=== PATIENT | male | born 1970 | race Caucasian/White ===

== ENCOUNTER → 2016-11-04 | Outpatient (CLI) | payer OTHER, BC ==
[2016-11-04 13:15] LABS: BASO % 0.9 %; COMPLETE YES; EOS % 2.2 %; HEMATOCRIT 45.3 % (42-52); IG% 1.1 %; LYMPH % 23.9 %; LYMPH ABS # 2.55 K/uL (1.2-3.4); MEAN CELL VOLUME 87.8 fL (80-100); MEAN CORPUSCULAR HGB CONC 34.2 g/dl (32-36); MEAN PLATELET VOLUME 10.6 fL (7.4-10.4); MONO % 9.6 %; NEUT % 62.3 %; PLATELET COUNT 238 K/uL (130-400); RED BLOOD COUNT 5.16 M/uL (4.7-6.1); WHITE BLOOD COUNT 10.66 K/uL (4.8-10.8)
[2016-11-04 14:17] LABS: ESTIMATED AVERAGE GLUCOSE 108 mg/dl; HA1C FLAG Normal (Normal)
[2016-11-04 15:01] LABS: ALB/GLOB RATIO 1.4 (0.9-2); ALKALINE PHOSPHATASE 64 U/L (45-117); ALT/SGPT 53 U/L (12-78); AST/SGOT 26 U/L (15-37); BLOOD UREA NITROGEN 13 mg/dl (7-18); BUN/CREATININE RATIO 11.6 (10-20); CALCIUM 9.1 mg/dl (8.5-10.1); CARBON DIOXIDE 27 mmol/L (21-32); CHLORIDE 108 mmol/L (98-107); CHOLESTEROL 189 mg/dl (0-200); CHOLESTEROL/HDL RATIO 4.2; GLUCOSE 87 mg/dl (70-99); HDL CHOLESTEROL 45 mg/dl; LDL CHOLESTEROL CALCULATED 100 mg/dl; POTASSIUM 3.8 mmol/L (3.5-5.1); SODIUM 145 mmol/L (136-145); THYROID STIMULATING HORMONE 0.846 uIu/ml (0.300-4.500); TRIGLYCERIDES 219 mg/dl (0-150); VERY LOW DENSITY LIPOPROT CALC 44 mg/dl
== END | disposition home or self-care (01) ==
LOC: C.LABMFLN 10:43
PROVIDERS: ATTEND Urology
DX: Z79.899 Other long term (current) drug therapy (principal)

== ENCOUNTER → 2016-11-25 | Outpatient (CLI) | payer OTHER, BC | END | disposition home or self-care (01) | LOC: C.LABMFLN 08:59 | PROVIDERS: ATTEND Urology | DX: Z79.899 Other long term (current) drug therapy (principal) ==

== ENCOUNTER → 2016-12-30 | Outpatient (CLI) | payer OTHER, BC ==
[2016-12-30 18:01] LABS: BASO % 0.9 %; COMPLETE YES; EOS % 2.8 %; HEMATOCRIT 45.2 % (42-52); IG% 0.9 %; LYMPH % 23.4 %; LYMPH ABS # 2.53 K/uL (1.2-3.4); MEAN CELL VOLUME 88.6 fL (80-100); MEAN CORPUSCULAR HEMOGLOBIN 30.2 pg (25-34); MEAN CORPUSCULAR HGB CONC 34.1 g/dl (32-36); MEAN PLATELET VOLUME 11.2 fL (7.4-10.4); MONO % 9.3 %; NEUT % 62.7 %; PLATELET COUNT 228 K/uL (130-400)
[2016-12-30 18:17] LABS: ALT/SGPT 33 U/L (12-78); AST/SGOT 17 U/L (15-37); BLOOD UREA NITROGEN 13 mg/dl (7-18); BUN/CREATININE RATIO 12.6 (10-20); CALCIUM 8.8 mg/dl (8.5-10.1); CARBON DIOXIDE 26 mmol/L (21-32); CHLORIDE 108 mmol/L (98-107); CHOLESTEROL 175 mg/dl (0-200); CHOLESTEROL/HDL RATIO 3.8; GLUCOSE 89 mg/dl (70-99); HDL CHOLESTEROL 46 mg/dl; SODIUM 143 mmol/L (136-145)
[2016-12-30 18:29] LABS: ALB/GLOB RATIO 1.3 (0.9-2); ALKALINE PHOSPHATASE 64 U/L (45-117); LDL CHOLESTEROL CALCULATED 86 mg/dl; TRIGLYCERIDES 216 mg/dl (0-150); VERY LOW DENSITY LIPOPROT CALC 43 mg/dl
== END | disposition home or self-care (01) ==
LOC: C.LABMFLN 12:53
PROVIDERS: ATTEND Family Medicine
DX: F32.9 Major depressive disorder, single episode, unspecified (principal); E78.5 Hyperlipidemia, unspecified

== ENCOUNTER → 2017-09-24 | Day surgery (SDC) | payer BC, OTHER ==
[2017-09-17 08:28] VITALS: Ht 177.8 cm; Wt 116.8 kg
[~2017-09-24] VITALS: Ht 177.8 cm; Wt 116.8 kg
[~2017-09-24] MED LIST: ACET-749 PO; ATROPINE SULFATE 0.1 MG/ML 5ML SYR IV PRN; BUPIVACAINE 0.5 % 5 MG/1 ML PF 10ML VIAL ONE; BUPR-79 PO; CEFAZOLIN 2000MG IV PUSH 10 ML IV SCH; EpHEDrine SULFATE INJ 50 MG/ML AMP IV PRN; FENTANYL CITRATE INJ 50 MCG/1 ML 2 ML VIAL IV PRN; FENTANYL CITRATE INJ 50 MCG/1 ML 2 ML VIAL ONE; FEXO1TAB49 PO; LACTATED RINGER'S 1000ML 1,000 ML IV SCH; LIDOCAINE HCL 2% 2 ML VIAL (20MG/ML) ONE; LIDOCAINE HCL 2% LOCAL 20 ML VIAL ONE; LITH600C PO; MIDAZOLAM HCL 1 MG/ML 2ML VIAL ONE; ONDANSETRON INJ 2 MG/ML 2 ML VIAL IV PRN; PRLSR20 PO; PROPOFOL IV EMULSION 10 MG/ML 20 ML VIAL IV ONE; ROSU40TA PO; SERT-234 PO; SODIUM CHLORIDE 0.9% 1000ML 1,000 ML IV SCH
--- NOTE | 2017-09-24 06:56 | History & Physical Bridge - [place] ---
H&P Re-Evaluation Bridge Note: I have examined the patient, reviewed the History & Physical and in the interval since the performance of the History & Physical I have noted the following changes of clinical significance: No changes noted
--- NOTE | 2017-09-24 07:37 | [facility] Post Operative Brief Note ---
Immediate Operative Summary Operative Date Sep 24, 2017. Pre-Operative Diagnosis Right Carpal Tunnel Syndrome Post-Operative Diagnosis same as pre op Procedure(s) Performed Right Carpal Tunnel Release Surgeon Dr Walls Motor Vehicle Emissions Inspector Surgeon(s) SULLY Moon Estimated Blood Loss minimal Findings Right Carpal Tunnel Syndrome Specimens none Anesthesia Local with IV Sedation Complication(s) None Disposition Recovery Room / PACU
--- NOTE | 2017-09-24 07:39 | Discharge Instructions-SurgCtr ---
Discharge Instructions Date of Service Sep 24, 2017. Visit Reason for Visit: Right Carpal Tunnel Syndrome Discharge Discharge Diagnosis / Problem: right carpal tunnel syndrome Discharge Goals Goal(s): Decrease discomfort, Improve function, Therapeutic intervention Activity Recommendations Activity Limitations: per Instructions/Follow-up section Anesthesia . Post Anesthesia Instructions: If you have had General Anesthesia or IV Sedation: * Do not drive today. * Resume driving when surgeon permits. * Do not make important decisions or sign legal documents today. * Call surgeon for: 1. Temperature elevations greater than 101 degrees F. 2. Uncontrollable pain. 3. Excessive bleeding. 4. Persistent nausea and vomiting. 5. Medication intolerance (nausea, vomiting or rash). * For nausea and vomiting use only clear liquids such as: tea, soda, bouillon until nausea subsides, then gradually increase diet as tolerated. * If you have any concerns or questions, call your surgeon's office. If physician is unavailable and it is an emergency, call 911 or go to the nearest emergency room. . Instructions / Follow-Up Instructions / Follow-Up MEDICATIONS: * Resume previous medications unless instructed otherwise by your surgeon. * Always take pain medication on a full stomach or with food to avoid upset stomach. * Do not drink alcohol or drive while taking narcotics. * Ibuprofen or Tylenol may be taken if narcotic not needed. SPECIAL CARE INSTRUCTIONS: __ None __ Keep extremity elevated and iced x 48 hours; apply ice 20-30 minutes 8-10 times/day. May remove at night. __ Sling __24 hrs/day __ Remove at night __ Shoulder Immobilizer __ 24 hrs/day __ Remove at night _x_ Dressing _x_ Maintain until seen in office, may shower with plastic over site __ Remove dressings in 24-48 hours and then may shower __ Cover incisions with band-aids after showering __ Do not remove steri-strips Call physician if chills or temperature rises above 102 degrees or pain unrelieved by prescribed pain medications at . . follow up in 2 weeks Diet Recommendations Home Diet: resume previous diet Procedures Procedures Performed: Right Carpal Tunnel Release Pending Studies Studies pending at discharge: no Medical Emergencies . Who to Call and When: Medical Emergencies: If at any time you feel your situation is an emergency, please call 911 immediately. . Non-Emergent Contact Non-Emergency issues call your: Surgeon . . "Provider Documentation" section prepared by [employer] [facility]. .
--- NOTE | 2017-09-24 07:54 | OPERATIVE REPORT ---
DATE OF OPERATION: 09/24/2017 SURGEON: Alexi Walls MD BUTADIENE COMPRESSOR OPERATOR: SULLY Rawls. PREOPERATIVE DIAGNOSIS: Right carpal tunnel syndrome. POSTOPERATIVE DIAGNOSIS: Same. PROCEDURE PERFORMED: Right carpal tunnel release. COMPLICATIONS: None. ESTIMATED BLOOD LOSS: Minimal. TOURNIQUET TIME: 5 minutes at 250 mmHg. ANESTHESIA: Local with IV sedation. 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 He underwent a left carpal tunnel release several years ago with pretty good result. He has developed progressive numbness in his right hand. He had nerve study which showed carpal tunnel syndrome in the past. He elected to proceed with right carpal tunnel release. OPERATIVE PROCEDURE: The patient taken to the operating room, identified and placed on the operating table in supine position. All contact areas were appropriately padded. IV antibiotics were provided by anesthesia team. A right forearm tourniquet was placed. Some IV sedation was provided. Then, 10 mL of a 50:50 combination of 0.5% Marcaine and 2% lidocaine were injected in and around the proposed incision site. The right hand was then prepped and draped in usual sterile fashion. The right arm was elevated and exsanguinated with Esmarch and tourniquet was placed at 250 mmHg. A 3 cm incision was made in the palm just ulnar to the palmaris longus tendon. Blunt dissection was carried out through the subcutaneous tissues down to the level of the palmar fascia. The palmar fascia was incised longitudinally in line with skin incision. The underlying transverse carpal ligament was identified. It was cleaned of soft tissues. It was transected distally with use of a Cache blade, knife and then bluntly spread. Attention was then drawn proximally. Blunt dissection was carried out above and below the ligament proximally. The ligament was then transected for a minimum distance of 3 cm proximal to the wrist flexion crease. The ligament was bluntly spread and found to be completely released. The wound was then irrigated. The tourniquet was let down for a tourniquet time of 5 minutes. Hemostasis was assured with use of electrocautery. The wound was once again irrigated. The skin was then closed with 5-0 nylon suture in a horizontal mattress fashion. The hand was then cleaned and dried and a sterile dressing of Xeroform, 4 x 4, sterile cast padding and Edy bandage were applied. The patient then transferred to the recovery room in stable condition. The patient tolerated the procedure well with no complications. All needle and sponge counts were correct at the end of the operation. I attest to the content of the Intraoperative Record and any orders documented therein. Any exception s are noted below.
--- NOTE | 2017-09-24 08:11 | Anesthesiology Progress Note ---
Anesthesia Post Op Note Date & Time Sep 24, 2017 at 08:11 Vital Signs Pain Intensity: 0 Vital Signs Past 12 Hours Date Time Temp Pulse Resp B/P (MAP) Pulse Ox O2 Delivery O2 Flow Rate FiO2 09/24/17 07:40 36.4 71 16 142/84 (103) 97 Room Air 09/24/17 06:31 36.7 63 16 150/86 (107) 94 Room Air Notes Mental Status: alert / awake / arousable, participated in evaluation Nausea / Vomiting: adequately controlled Pain: adequately controlled Airway Patency, RR, SpO2: stable & adequate BP & HR: stable & adequate Hydration State: stable & adequate Anesthetic Complications: no major complications apparent
[2017-09-24 08:20] VITALS: BP 118/73; PULSE 63; TEMP 36.5; O2SAT 96
== END | disposition home or self-care (01) ==
LOC: X.SURG 06:13
PROVIDERS: ATTEND Orthopaedic Surgery Sports Medicine
DX: G56.01 Carpal tunnel syndrome, right upper limb (principal); E78.5 Hyperlipidemia, unspecified; F32.9 Major depressive disorder, single episode, unspecified; E66.9 Obesity, unspecified; Z98.890 Other specified postprocedural states; Z79.899 Other long term (current) drug therapy

== ENCOUNTER → 2017-11-10 | Outpatient (CLI) | payer OTHER ==
[~2017-11-10] MED LIST changes: -ATROPINE SULFATE 0.1 MG/ML 5ML SYR IV PRN; -BUPIVACAINE 0.5 % 5 MG/1 ML PF 10ML VIAL ONE; -CEFAZOLIN 2000MG IV PUSH 10 ML IV SCH; -EpHEDrine SULFATE INJ 50 MG/ML AMP IV PRN; -FENTANYL CITRATE INJ 50 MCG/1 ML 2 ML VIAL IV PRN; -FENTANYL CITRATE INJ 50 MCG/1 ML 2 ML VIAL ONE; -LACTATED RINGER'S 1000ML 1,000 ML IV SCH; -LIDOCAINE HCL 2% 2 ML VIAL (20MG/ML) ONE; -LIDOCAINE HCL 2% LOCAL 20 ML VIAL ONE; -MIDAZOLAM HCL 1 MG/ML 2ML VIAL ONE; -ONDANSETRON INJ 2 MG/ML 2 ML VIAL IV PRN; -PROPOFOL IV EMULSION 10 MG/ML 20 ML VIAL IV ONE; -SODIUM CHLORIDE 0.9% 1000ML 1,000 ML IV SCH
[2017-11-10 17:55] LABS: BASO % 1.2 %; BASO ABS # 0.12 K/uL (0-0.2); EOS % 2.6 %; EOS ABS # 0.27 K/uL (0-0.5); HEMATOCRIT 47.2 % (42-52); HEMOGLOBIN 15.8 g/dL (14.0-18.0); IG# 0.09 K/uL (0.00-0.02); LYMPH % 26.2 %; LYMPH ABS # 2.68 K/uL (1.2-3.4); MEAN CELL VOLUME 89.1 fL (80-100); MEAN CORPUSCULAR HEMOGLOBIN 29.8 pg (25-34); MEAN CORPUSCULAR HGB CONC 33.5 g/dl (32-36); MEAN PLATELET VOLUME 10.7 fL (7.4-10.4); MONO % 9.2 %; MONO ABS # 0.94 K/uL (0.11-0.59); NEUT % 59.9 %; NEUT ABS # 6.14 K/uL (1.4-6.5); PLATELET COUNT 236 K/uL (130-400); RED CELL DISTRIBUTION WIDTH SD 45.5 fL (36.4-46.3); WHITE BLOOD COUNT 10.24 K/uL (4.8-10.8)
[2017-11-10 19:06] LABS: ALBUMIN 4.1 gm/dl (3.4-5.0); BLOOD UREA NITROGEN 13 mg/dl (7-18); CALCIUM 9.1 mg/dl (8.5-10.1); CARBON DIOXIDE 27 mmol/L (21-32); CHOLESTEROL 250 mg/dl (0-200); CREATININE 0.94 mg/dl (0.60-1.40); GLUCOSE 78 mg/dl (70-99); POTASSIUM 3.8 mmol/L (3.5-5.1); SODIUM 140 mmol/L (136-145)
[2017-11-10 19:16] LABS: ALKALINE PHOSPHATASE 59 U/L (45-117); ALT/SGPT 50 U/L (12-78); AST/SGOT 23 U/L (15-37); LDL CHOLESTEROL CALCULATED 147 mg/dl
[2017-11-11 06:32] LABS: HEMOGLOBIN A1C 5.3 % (4.5-5.6)
== END | disposition home or self-care (01) ==
LOC: C.LABMFLN 13:11
PROVIDERS: ATTEND Physician Assistant
DX: Z51.81 Encounter for therapeutic drug level monitoring (principal); Z79.899 Other long term (current) drug therapy

== ENCOUNTER → 2017-12-18 | Outpatient (CLI) | payer OTHER | END | disposition home or self-care (01) | LOC: C.LABMFLN 07:57 | PROVIDERS: ATTEND Physician Assistant | DX: R10.32 Left lower quadrant pain (principal); R19.7 Diarrhea, unspecified ==

== ENCOUNTER 2020-06-14 06:39 | Observation (INO) ==
--- NOTE | 2020-06-01 13:42 | PAT Medication Instructions ---
Medication Instructions Date of Service June 01, 2020 Home Medications Medication Instructions Recorded albuterol sulfate 90 mcg/actuation 2 puffs INHALATION Q4H PRN #18 gm 04/18/19 aerosol inhaler bupropion HCl 150 mg tablet,12 hr 150 mg PO DAILY #90 ea 04/18/19 sustained-release fluticasone propionate 50 2 sprays INTRANASAL DAILY #47.4 gm 04/18/19 mcg/actuation nasal spray,suspension lithium carbonate 600 mg capsule 600 mg PO BID #180 cap 04/18/19 omeprazole 20 mg tablet,delayed 20 mg PO BID #180 tab 04/18/19 release sertraline 100 mg tablet 100 mg PO DAILY #90 tab 04/18/19 rosuvastatin 40 mg tablet 40 mg PO DAILY #90 tab 05/07/19 lisinopril 5 mg tablet 5 mg PO DAILY #90 tab 10/25/19 meclizine 25 mg tablet 25 mg PO TID PRN #60 tab 02/29/20 cyclobenzaprine 10 mg tablet 10 mg PO HS #30 tab 04/24/20 albuterol sulfate 90 mcg/actuation aerosol inhaler 2 puffs INHALATION Q4H PRN bupropion HCl 150 mg tablet,12 hr sustained-release 150 mg PO DAILY fluticasone propionate 50 mcg/actuation nasal spray,suspension 2 sprays INTRANASAL DAILY lithium carbonate 600 mg capsule 600 mg PO BID omeprazole 20 mg tablet,delayed release 20 mg PO BID sertraline 100 mg tablet 100 mg PO DAILY rosuvastatin 40 mg tablet 40 mg PO DAILY lisinopril 5 mg tablet 5 mg PO DAILY meclizine 25 mg tablet 25 mg PO TID PRN cyclobenzaprine 10 mg tablet 10 mg PO HS DO NOT take the morning of surgery lisinopril 5 mg tablet 5 mg PO DAILY Take morning of surgery With a small sip of water, OTHERWISE NOTHING TO EAT OR DRINK AFTER MIDNIGHT: albuterol sulfate 90 mcg/actuation aerosol inhaler 2 puffs INHALATION Q4H PRN (use if needed; please bring with you to hospital day of surgery if possible) bupropion HCl 150 mg tablet,12 hr sustained-release 150 mg PO DAILY fluticasone propionate 50 mcg/actuation nasal spray,suspension 2 sprays INTRANASAL DAILY lithium carbonate 600 mg capsule 600 mg PO BID omeprazole 20 mg tablet,delayed release 20 mg PO BID sertraline 100 mg tablet 100 mg PO DAILY rosuvastatin 40 mg tablet 40 mg PO DAILY meclizine 25 mg tablet 25 mg PO TID PRN (if needed) Take evening before surgery albuterol sulfate 90 mcg/actuation aerosol inhaler 2 puffs INHALATION Q4H PRN (if needed) lithium carbonate 600 mg capsule 600 mg PO BID omeprazole 20 mg tablet,delayed release 20 mg PO BID meclizine 25 mg tablet 25 mg PO TID PRN (if needed) cyclobenzaprine 10 mg tablet 10 mg PO HS Other Notes If you have any questions please call us at [phone] or [phone] or [phone] or [phone]
--- NOTE | 2020-06-05 10:52 | Anesthesiology Consultation ---
Date of Service June 05, 2020 Assessment & Plan (1) Encounter for pre-operative examination: - Per assessment on 06/05: Travel screen- Lives in [facility]. 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 No known COVID-19 positive contacts or current COVID-19 related symptoms. Surgeon arranging preop COVID testing. Awaiting results. - Possible difficult intubation: d/t decreased cervical extension Chart Review Chart Review: Acceptable Risk for Surgery (pending surgeon-ordered PCP clearance) and Patient seen in Pre Admission Testing Teaching & Discussion Pre-Anesthesia Teaching/Discussion Notes: Instructed NPO after midnight before surgery,except medications with 15 cc of water. Medication instructions provided according to the PAT guidelines. History Surgery Operation Date: 06/14/20 07:45 Proposed Procedures p C5-C6 Anterior Cervical Discectomy and Fusion, Spinal Cord Monitoring - Joseph Antunez DO Height/Weight Height: 5 ft 8 in Weight: 118.5 kg Allergies Allergy/AdvReac Type Severity Reaction Status Date / Time No Known Drug Allergies Allergy Verified 06/01/20 11:14 Medications Home Medications Medication Instructions Recorded Confirmed Last Taken albuterol sulfate 90 mcg/actuation 2 puffs INHALATION Q4H PRN #18 gm 04/18/19 06/01/20 Unknown aerosol inhaler bupropion HCl 150 mg tablet,12 hr 150 mg PO DAILY #90 ea 04/18/19 06/01/20 Unknown sustained-release fluticasone propionate 50 2 sprays INTRANASAL DAILY #47.4 gm 04/18/19 06/01/20 Unknown mcg/actuation nasal spray,suspension lithium carbonate 600 mg capsule 600 mg PO BID #180 cap 04/18/19 06/01/20 Unknown omeprazole 20 mg tablet,delayed 20 mg PO BID #180 tab 04/18/19 06/01/20 Unknown release sertraline 100 mg tablet 100 mg PO DAILY #90 tab 04/18/19 06/01/20 Unknown lisinopril 5 mg tablet 5 mg PO DAILY #90 tab 10/25/19 06/01/20 Unknown meclizine 25 mg tablet 25 mg PO TID PRN #60 tab 02/29/20 06/01/20 Unknown cyclobenzaprine 10 mg tablet 10 mg PO HS #30 tab 04/24/20 06/01/20 Unknown rosuvastatin 40 mg tablet 40 mg PO DAILY #90 tab 06/05/20 Unknown Past Medical History Medical History Anxiety and depression Asthma per PCP records/patient states inhaler prescription is d/t seasonal allergies Barretts esophagus Benign essential hypertension Esophageal reflux controlled Herniated cervical disc Hyperlipidemia Obesity Exercise / Class Metabolic Activity II 4-5 Yardwork/Stairs/Walk up hill (one flight of stairs (no chest pain/no sob)) Past Family History Family History Father Diabetes Coronary heart disease Grandfather (Maternal) Family history of esophageal cancer Past Surgical History Surgical History Ganglion cyst REMOVED FROM RT WRIST History of colonoscopy History of esophagogastroduodenoscopy (EGD) S/P carpal tunnel release LEFT/RT S/P cholecystectomy S/P shoulder surgery LEFT S/P sinus surgery [place] teeth removed Past Anesthesia History No Hx of Anesthesia Complications (except PONV) and No Family Hx of Anesthesia Complications History of PONV History of PONV (with remote surgeries/no issues when pre-treatment used with most recent surgery) and Hx of Motion Sickness (when fishing) STOP BANG Total 5 Social History Smoking Status: Former smoker tobacco type: cigarettes Do You Dip or Chew Tobacco: No Smoking End Date: QUIT 30 YEARS AGO Hx Alcohol Use: No Hx Substance Use: No Review of Systems Patient denies chest pain, shortness of breath, dyspnea on exertion, joint pain, reflux, cough, wheezing, palpitations. Physical Exam Vital Signs VITALS BP 142/88 P 65 TEMP 98.1 SP02 98%RA RESP 16 PHYSICAL Decreased cervical extension (2/2 cervicalgia/radiculopathy) Full TMJ range of motion. TMD 5 finger breaths Mallampati Score 1 Dentition: intact (caps on sides/molars) Lungs: clear throughout to auscultation Cardiac: regular rate and rhythm, no murmurs noted Spine: normal Carotid arteries: negative bruit Extremities: no edema Testing Laboratory Results 06/05/20 11:20 06/05/20 11:20 PT 10.9 Seconds (9.0-12.0) 06/05/20: INR 1.0 (0.9-1.1) 06/05/20 11:20 APTT 26.8 Seconds (21.0-31.0) 06/05/20 11:20 Urine Color Yellow 06/05/20 11:20 Urine Appearance Clear (Clear) 06/05/20 11:20 Urine pH 7.0 (4.5-7.5) 06/05/20 11:20 Ur Specific [place] 1.020 (1.000-1.030) 06/05/20 11:20 Urine Protein Negative (Negative) 06/05/20 11:20 Urine Glucose (UA) Negative (Negative) 06/05/20 11:20 Urine Ketones Negative (Negative) 06/05/20 11:20 Urine Nitrite Negative (Negative) 06/05/20 11:20 Ur Leukocyte Esterase Negative (Negative) 06/05/20 11:20 Blood Type A Positive 06/05/20 11:20 Antibody Screen NEGATIVE 06/05/20 11:20 Electrocardiogram Date: 06/05/20 NSR at 63bpm. iRBBB. unconfirmed report* Chest X-Ray Date: 06/05/20 FINDINGS: The heart is borderline enlarged. There is no failure. There is no focal pulmonary consolidation. There are no pleural effusions. IMPRESSION: No active disease in the chest.
--- NOTE | 2020-06-05 12:11 | XRay Report ---
XR chest Pre-admission PA/Lat CLINICAL HISTORY: Preoperative chest COMPARISON STUDY: No previous studies for comparison. FINDINGS: The heart is borderline enlarged. There is no failure. There is no focal pulmonary consolid ation. There are no pleural effusions.[ IMPRESSION: No active disease in the chest. ACT 112: Negative or not required by law. Electronically signed by: Inocencio Stanford M.D. 06/05/2020 12:09 PM
[2020-06-05 12:12] LABS: Basophils # (auto) 0.15 K/uL (0-0.2); Basophils % (auto) 1.6 %; Eosinophils # (auto) 0.35 K/uL (0-0.5); Eosinophils % (auto) 3.6 %; Hematocrit (blood only) 46.8 % (42-52); Hemoglobin 15.3 g/dL (14.0-18.0); Immature Granulocytes # (auto) 0.12 K/uL (0.00-0.02); Immature Granulocytes % (auto) 1.3 %; Lymphocytes # (auto) 2.52 K/uL (1.2-3.4); Lymphocytes % (auto) 26.3 %; Mean Corpuscular Hemoglobin 29.8 pg (25-34); Mean Corpuscular Hgb Conc 32.7 g/dL (32-36); Mean Corpuscular Volume 91.1 fL (80-100); Mean Platelet Volume 10.6 fL (7.4-10.4); Monocytes # (auto) 0.79 K/uL (0.11-0.59); Monocytes % (auto) 8.2 %; Neutrophils # (auto) 5.66 K/uL (1.4-6.5); Platelet Count 232 K/uL (130-400); RDW Coefficient of Variation 13.2 % (11.5-14.5); RDW Standard Deviation 43.8 fL (36.4-46.3); Red Blood Count 5.14 M/uL (4.7-6.1); White Blood Count 9.59 K/uL (4.8-10.8)
[2020-06-05 12:18] LABS: Appearance Urine Clear (Clear); Bilirubin Urine Negative (Negative); Blood Urine Negative (Negative); Color Urine Yellow; Glucose Urine UA Negative (Negative); Ketones Urine Negative (Negative); Leukocyte Esterase Urine Negative (Negative); Nitrite Urine Negative (Negative); Protein Urine Negative (Negative); Urobilinogen Urine Negative (Negative)
[2020-06-05 12:28] LABS: Partial Thromboplastin Time 26.8 Seconds (21.0-31.0); Prothrombin Time 10.9 Seconds (9.0-12.0)
[2020-06-05 12:35] LABS: BUN Creatinine Ratio 12.8 (10-20); Calcium 9.2 mg/dl (8.5-10.1); Creatinine Clr Calc Pharmacy 113.9 ml/min; Est GFR (African American) 105.6; Est GFR (Non-African American) 91.2; Potassium 4.1 mmol/L (3.5-5.1)
--- NOTE | 2020-06-06 15:32 | Electrocardiogram Report ---
Test Reason : Blood Pressure : / mmHG Vent. Rate : 063 BPM Atrial Rate : 063 BPM P-R Int : 180 ms QRS Dur : 100 ms QT Int : 424 ms P-R-T Axes : 010 025 012 degrees QTc Int : 433 ms Normal sinus rhythm Incomplete right bundle branch block Borderline ECG No previous ECGs available Confirmed by Akira Brar ([id number]) on 06/06/2020 3:32:11 PM Referred By: Joseph Antunez Confirmed By:Akira Brar
[~2020-06-14 06:39] MED LIST changes: -ACET-749 PO; +ACETAMINOPHEN 500 MG TAB PO SCH; -BUPR-79 PO; +CEFAZOLIN 2000MG 2,000 MG/15 ML SYR IV SCH; +CeleBREX 200 MG CAP PO SCH; -FEXO1TAB49 PO; +GABAPENTIN 900 MG DOSE PO SCH; -LITH600C PO; +LR 15ML/HR IV SCH; -PRLSR20 PO; -ROSU40TA PO; -SERT-234 PO
[2020-06-14] MEDS ORDERED: PROPOFOL IV EMULSION 10 MG/ML 20 ML VIAL IV ONE (06:48)
[2020-06-14] MEDS ORDERED: ROCURONIUM BROMIDE 10 MG/ML 5 ML VIAL IV ONE (06:48)
[2020-06-14] MEDS ORDERED: ONDANSETRON INJ 2 MG/ML 2 ML VIAL ONE (06:48)
[2020-06-14] MEDS ORDERED: SUCCINYLCHOLINE CHLORIDE 20 MG/ML 10 ML VIAL IV ONE (06:48)
[2020-06-14] MEDS ORDERED: DEXAMETHASONE SOD INJ 4 MG/ML VIAL ONE (06:48)
[2020-06-14] MEDS ORDERED: LIDOCAINE HCL 2% 2 ML VIAL/AMP(20MG/ML) INFIL ONE (06:48)
[2020-06-14] MEDS ORDERED: MIDAZOLAM HCL 1 MG/ML 2ML VIAL ONE (06:49)
[2020-06-14] MEDS ORDERED: fentaNYL citrate 100 MCG/2 ML VIAL ONE (06:49)
[2020-06-14] MEDS ORDERED: PROPOFOL IV EMULSION 10 MG/ML 100 ML VIAL IV ONE (06:56)
[2020-06-14] MEDS ORDERED: BACITRACIN INJ 50,000 UNIT VIAL ONE (07:01)
[2020-06-14] MEDS ORDERED: SCOPOLAMINE 1.5 MG TDSY TD ONE (07:32)
--- NOTE | 2020-06-14 07:32 | History & Physical Bridge Note ---
Date of Service June 14, 2020 History & Physical Bridge Note I have examined the patient, reviewed the History & Physical and in the interval since the performance of the History & Physical I have noted the following changes of clinical significance: no changes noted
--- NOTE | 2020-06-14 07:34 | History & Physical Report ---
Date of Service June 14, 2020 Assessment & Plan (1) Cervical stenosis of spinal canal: Admission and Anticipated Discharge Date Admission Date: Anterior cervical discectomy and fusion C5-C6 History of Present Illness Primary Care Provider: Erlinda Beach MD Allergies Allergy/AdvReac Type Severity Reaction Status Date / Time No Known Drug Allergies Allergy Verified 06/14/20 07:02 Home Medications Home Medications Medication Instructions Recorded Confirmed Type albuterol sulfate 90 mcg/actuation 2 puffs INHALATION Q4H PRN #18 gm 04/18/19 06/14/20 Rx aerosol inhaler bupropion HCl 150 mg tablet,12 hr 150 mg PO DAILY #90 ea 04/18/19 06/14/20 Rx sustained-release fluticasone propionate 50 2 sprays INTRANASAL DAILY #47.4 gm 04/18/19 06/14/20 Rx mcg/actuation nasal spray,suspension lithium carbonate 600 mg capsule 600 mg PO BID #180 cap 04/18/19 06/14/20 Rx omeprazole 20 mg tablet,delayed 20 mg PO BID #180 tab 04/18/19 06/14/20 Rx release sertraline 100 mg tablet 100 mg PO DAILY #90 tab 04/18/19 06/14/20 Rx lisinopril 5 mg tablet 5 mg PO DAILY #90 tab 10/25/19 06/14/20 Rx meclizine 25 mg tablet 25 mg PO TID PRN #60 tab 02/29/20 06/14/20 Rx cyclobenzaprine 10 mg tablet 10 mg PO HS #30 tab 04/24/20 06/14/20 Rx rosuvastatin 40 mg tablet 40 mg PO DAILY #90 tab 06/05/20 06/14/20 Rx Past Med/Surg History Medical History Anxiety and depression Asthma per PCP records/patient states inhaler prescription is d/t seasonal allergies Barretts esophagus Benign essential hypertension Esophageal reflux controlled Herniated cervical disc Hyperlipidemia Obesity Surgical History Ganglion cyst REMOVED FROM RT WRIST History of colonoscopy History of esophagogastroduodenoscopy (EGD) S/P carpal tunnel release LEFT/RT S/P cholecystectomy S/P shoulder surgery LEFT S/P sinus surgery [place] teeth removed Family History Father Diabetes Coronary heart disease Grandfather (Maternal) Family history of esophageal cancer Social History Smoking Status: Former smoker Smoking End Date: QUIT 30 YEARS AGO; Second Hand Exposure: No; Do You Dip or Chew Tobacco: No; Tobacco Cessation Education Requested by Patient: No Hx Alcohol Use: No Hx Substance Use: No Preferred Language: Filipino Visual Impairment: No Limitations Hearing Ability: Normal Rn Orthopaedic Required: No Beliefs That Will Affect Care: None marital status: Current Living Situation: Spouse current occupational status: employed Feels Safe at Home: Yes Safety Concerns: Feels Safe At This Time Childhood Exposure to Second-Hand Smoke: Yes Dental Care, Regularly: Yes Physical Activity Frequency: Does not Exercise Seatbelt Use: always Sunscreen Use: Yes Assistive Devices: None Results & Data ([facility]) Vital Signs (Past 12 Hours) Vital Signs Temp Pulse Resp BP Pulse Ox 06/14/20 07:07 36.9 C 75 20 161/88 H 96
--- NOTE | 2020-06-14 07:34 | History & Physical Report ---
Date of Service June 14, 2020 History of Present Illness Chief Complaint: Neck and arm pain Primary Care Provider: Erlinda Beach MD This is a 50-year-old female with an arm symptoms. After failing course of nonoperative care is here for surgical invention. Allergies Allergy/AdvReac Type Severity Reaction Status Date / Time No Known Drug Allergies Allergy Verified 06/14/20 07:02 Home Medications Home Medications Medication Instructions Recorded Confirmed Type albuterol sulfate 90 mcg/actuation 2 puffs INHALATION Q4H PRN #18 gm 04/18/19 06/14/20 Rx aerosol inhaler bupropion HCl 150 mg tablet,12 hr 150 mg PO DAILY #90 ea 04/18/19 06/14/20 Rx sustained-release fluticasone propionate 50 2 sprays INTRANASAL DAILY #47.4 gm 04/18/19 06/14/20 Rx mcg/actuation nasal spray,suspension lithium carbonate 600 mg capsule 600 mg PO BID #180 cap 04/18/19 06/14/20 Rx omeprazole 20 mg tablet,delayed 20 mg PO BID #180 tab 04/18/19 06/14/20 Rx release sertraline 100 mg tablet 100 mg PO DAILY #90 tab 04/18/19 06/14/20 Rx lisinopril 5 mg tablet 5 mg PO DAILY #90 tab 10/25/19 06/14/20 Rx meclizine 25 mg tablet 25 mg PO TID PRN #60 tab 02/29/20 06/14/20 Rx cyclobenzaprine 10 mg tablet 10 mg PO HS #30 tab 04/24/20 06/14/20 Rx rosuvastatin 40 mg tablet 40 mg PO DAILY #90 tab 06/05/20 06/14/20 Rx Past Med/Surg History Medical History Anxiety and depression Asthma per PCP records/patient states inhaler prescription is d/t seasonal allergies Barretts esophagus Benign essential hypertension Esophageal reflux controlled Herniated cervical disc Hyperlipidemia Obesity Surgical History Ganglion cyst REMOVED FROM RT WRIST History of colonoscopy History of esophagogastroduodenoscopy (EGD) S/P carpal tunnel release LEFT/RT S/P cholecystectomy S/P shoulder surgery LEFT S/P sinus surgery [place] teeth removed Family History Father Diabetes Coronary heart disease Grandfather (Maternal) Family history of esophageal cancer Social History Smoking Status: Former smoker Smoking End Date: QUIT 30 YEARS AGO; Second Hand Exposure: No; Do You Dip or Chew Tobacco: No; Tobacco Cessation Education Requested by Patient: No Hx Alcohol Use: No Hx Substance Use: No Preferred Language: Beninese Visual Impairment: No Limitations Hearing Ability: Normal Inpatient Auditor Required: No Beliefs That Will Affect Care: None marital status: Current Living Situation: Spouse current occupational status: employed Feels Safe at Home: Yes Safety Concerns: Feels Safe At This Time Childhood Exposure to Second-Hand Smoke: Yes Dental Care, Regularly: Yes Physical Activity Frequency: Does not Exercise Seatbelt Use: always Sunscreen Use: Yes Assistive Devices: None Physical Exam Physical Exam: Patient alert and oriented neurologically intact. Heart regular rate and rhythm. Lungs clear to auscultation. Results & Data ([facility]) Vital Signs (Past 12 Hours) Vital Signs Temp Pulse Resp BP Pulse Ox 06/14/20 07:07 36.9 C 75 20 161/88 H 96
[2020-06-14] MEDS ORDERED: KETAMINE HCL INJ 50 MG/ML 10 ML VIAL ONE (08:13)
[2020-06-14] MEDS ORDERED: ONDANSETRON INJ 2 MG/ML 2 ML VIAL IV PRN ×2 (08:16→11:15)
[2020-06-14] MEDS ORDERED: ATROPINE SULFATE 0.1 MG/ML 10ML SYR IV PRN (08:16)
[2020-06-14] MEDS ORDERED: HYDROmorphone INJ 2 MG/ML SYR/VIAL IV PRN (08:16)
[2020-06-14] MEDS ORDERED: PROMETHAZINE HCL 12.5 MG in SODIUM CHLORIDE 0.9% 50 ML IV PRN ×2 (08:16→11:15)
[2020-06-14] MEDS ORDERED: ePHEDrine sulfate 50 MG/ML AMP IV PRN (08:16)
[2020-06-14] MEDS ORDERED: ePHEDrine sulfate 50 MG/ML SYR ONE (08:42)
[2020-06-14] MEDS ORDERED: GLYCOPYRROLATE 0.2 MG/ML VIAL ONE (08:42)
[2020-06-14] MEDS ORDERED: SUGAMMADEX SODIUM 200 MG/2 ML VIAL IV ONE ×2 (08:57→09:06)
--- NOTE | 2020-06-14 09:12 | Operative Report ---
Post Operative Report Pre & Post Diagnosis Operation Date: 06/14/20 07:45 Pre-Op Diagnosis: Spinal Stenosis, Cervical Region C5-6 Post-Op Diagnosis: Spinal Stenosis, Cervical Region C5-6 I identified the patient and participated in the time-out.: Yes Procedure Operation Date: 06/14/20 07:45 Actual Procedures Surgeon Joseph Antunez DO Office Chair Assembler Ines Luna Estimated Blood Loss 25 Findings See Below Patient is 5 foot eight weighing over 118 kg with a BMI of 39. The patient's significant body habitus did marked technical difficulty and at least 50% increase to the operative time. Specimens None Indications This is a 50-year-old male who presents with significant cervical radiculopathy. After failing course of nonoperative care is here for surgical invention. Description of Procedure Patient was met with identified informed consent obtained. Patient was then taken to the operative suite underwent an patient placed in supine position Scout table at [place] lateral. All bony prominences well-padded eyes inspected to ensure no external pressure placed upon up at this point the anterior cervical spine was prepped and draped in normal sterile fashion. With the assistance of fluoroscopy time for the C5-6 displays a transverse incision was placed along the right anterior aspect of the cervical spinal lines region. Sharp dissection with assistance of bipolar electrocautery was performed down to and exposing the anterior cervical disc space from C5-C6. I verified my position with fluoroscopy. Then performed a complete discectomy of C5-6 out to the uncovertebral joints bilaterally. This included removal of all posterior annular fibers longitudinal ligament and bilateral foraminotomies. [place] distracting pins were utilized to assist in visualization. I then burred the endplates to subcortical bleeding bone and an 8 mm Spira cage filled with DBM tapped in position. Distracting apparatus was removed 5 complete and screws applied with the assistance of fluoroscopy and then incisions were copiously irrigated explored to ensure no damage to surrounding structures remaining bleeding. 10 round LEONARD drain inserted. The incision was then closed with 2 Vicryl in a fashion of 4 Monocryl for final closure. Steri-Strip sterile dressings placed. Patient will continue to PACU stable condition. Please note spinal cord monitoring was last that the procedure and no changes noted. Lastly Ines Luna was present at the entire surgery involved the patient positioning complex portions of the surgery and final skin closure. I attest to the content of the Intraoperative Record and any orders documented therein. Any exceptions are noted below.
--- NOTE | 2020-06-14 09:42 | Fluoroscopy Report ---
INTRAOPERATIVE RADIOGRAPHS CLINICAL HISTORY: C5-C6 spinal fusion. Fluoroscopy time: 10 seconds. FINDINGS: 3 spot fluoroscopic views of the cervical spine are presented. There has been discectomy at C5-C6 with anterior fusion at these levels. The orthopedic hardware appears intact. An endotracheal tube is in place. IMPRESSION: Intraoperative images from C5-C6 spinal fusion as above. Electronically signed by: Milton Burroughs M.D. 06/14/2020 9:40 AM
[2020-06-14] MEDS: fentaNYL citrate 100 MCG/2 ML VIAL IV PRN ×2 (10:03→10:38)
[2020-06-14] MEDS ORDERED: LORazepam 0.5 MG/1 ML VIAL IV PRN (11:15)
[2020-06-14] MEDS ORDERED: HYDROmorphone INJ 0.5 MG/0.5 ML SYR IV PRN (11:15)
[2020-06-14] MEDS ORDERED: ONDANSETRON 4 MG OD TAB PO PRN (11:15)
[2020-06-14] MEDS ORDERED: LORazepam 0.5 MG TAB PO PRN (11:15)
[2020-06-14] MEDS ORDERED: DEXAMETHASONE SOD PHOSPHATE 8 MG in SYRINGE 0 ML IV PRN (11:15)
[2020-06-14] MEDS ORDERED: HYDROmorphone INJ 1 MG/ML SYRINGE IV PRN (11:15)
[2020-06-14] MEDS ORDERED: TRAMADOL HCL 50 MG TABLET PO PRN (11:15)
[2020-06-14] MEDS ORDERED: SOD PHOSPHATE/SOD BIPHOSPHATE ENEMA 132 ML BTL PR PRN (11:15)
[2020-06-14] MEDS ORDERED: FAMOTIDINE 20 MG TAB PO PRN (11:15)
[2020-06-14] MEDS ORDERED: METOCLOPRAMIDE HCL INJ 5 MG/ML 2 ML VIAL IV PRN (11:15)
[2020-06-14] MEDS ORDERED: MAGNESIUM HYDROXIDE SUSP 30 ML UDC PO PRN (11:15)
[2020-06-14] MEDS ORDERED: NALOXONE HCL 0.4 MG/1 ML VIAL/CARP IV PRN (11:15)
[2020-06-14] MEDS ORDERED: DO NOT ADMINISTER PNEUMOCOCCAL VACCINE PRN (11:15)
[2020-06-14] MEDS ORDERED: ALUMINUM/MAGNESIUM SUSP 30 ML UDC PO PRN (11:15)
[2020-06-14] MEDS ORDERED: DO NOT ADMINISTER FLU VACCINE PRN (11:15)
[2020-06-14] MEDS ORDERED: RACEPINEPHRINE 2.25% NEBU SOLN 0.5 ML VIAL INH PRN (11:15)
[2020-06-14] MEDS ORDERED: ACETAMINOPHEN 1,000 MG/100 ML VIAL IV PRN (11:15)
[2020-06-14] MEDS ORDERED: ACETAMINOPHEN 500 MG TAB PO PRN (11:15)
[2020-06-14] MEDS: LACTATED RINGER'S 1,000 ML IV SCH ×2 (11:43→20:48)
[2020-06-14] MEDS ORDERED: MECLIZINE HCL 25 MG TAB PO PRN (11:44)
--- NOTE | 2020-06-14 12:04 | Hospitalist Consultation ---
Date of Consultation June 14, 2020 Assessment & Plan (1) Cervical stenosis of spinal canal: Status post anterior cervical discectomy and fusion C5-C6 performed 06/14. Routine postoperative care and pain management per spine orthopedics. (2) Esophageal reflux: Switch omeprazole to pantoprazole per hospital formulary. (3) Hyperlipidemia: Continue rosuvastatin 40 mg p.o. daily (4) Depression: Continue bupropion 150 mg sustained release p.o. daily, sertraline 100 mg p.o. daily, lithium 600 mg p.o. twice daily. (5) Anxiety: As above. (6) Benign essential hypertension: Continue lisinopril 5 mg p.o. daily (7) DVT prophylaxis: SCDs. Chemical prophylaxis deferred to orthopedics. Thank you for the consult. We will continue to follow the patient at this time. History of Present Illness Attending Physician: Joseph Antunez DO History of Present Illness Natasha Horowitz is a 50 year old male who presents as a direct admission for anterior cervical discectomy and fusion C5-C6 under Dr. Antunez performed earlier today due to left arm/neck pain after failing nonoperative care. Doing well post operatively, no questions or concerns at the current time. Pain under control. He has a significant history of GERD, Antonio's esophagus, depression, anxiety, hypertension, hyperlipidemia. Allergies Allergy/AdvReac Type Severity Reaction Status Date / Time No Known Drug Allergies Allergy Verified 06/14/20 07:02 Home Medications Home Medications Medication Instructions Recorded Confirmed Type albuterol sulfate 90 mcg/actuation 2 puffs INHALATION Q4H PRN #18 gm 04/18/19 06/14/20 Rx aerosol inhaler bupropion HCl 150 mg tablet,12 hr 150 mg PO DAILY #90 ea 04/18/19 06/14/20 Rx sustained-release fluticasone propionate 50 2 sprays INTRANASAL DAILY #47.4 gm 04/18/19 06/14/20 Rx mcg/actuation nasal spray,suspension lithium carbonate 600 mg capsule 600 mg PO BID #180 cap 04/18/19 06/14/20 Rx omeprazole 20 mg tablet,delayed 20 mg PO BID #180 tab 04/18/19 06/14/20 Rx release sertraline 100 mg tablet 100 mg PO DAILY #90 tab 04/18/19 06/14/20 Rx lisinopril 5 mg tablet 5 mg PO DAILY #90 tab 10/25/19 06/14/20 Rx meclizine 25 mg tablet 25 mg PO TID PRN #60 tab 02/29/20 06/14/20 Rx cyclobenzaprine 10 mg tablet 10 mg PO HS #30 tab 04/24/20 06/14/20 Rx rosuvastatin 40 mg tablet 40 mg PO DAILY #90 tab 06/05/20 06/14/20 Rx oxycodone 5 mg PO Q6H PRN #15 tab 06/14/20 Rx tramadol 50 mg PO Q6H PRN #15 tab 06/14/20 Rx Patient History Medical History Anxiety and depression Asthma per PCP records/patient states inhaler prescription is d/t seasonal allergies Barretts esophagus Benign essential hypertension Esophageal reflux controlled Herniated cervical disc Hyperlipidemia Obesity Surgical History Ganglion cyst REMOVED FROM RT WRIST History of colonoscopy History of esophagogastroduodenoscopy (EGD) S/P carpal tunnel release LEFT/RT S/P cholecystectomy S/P shoulder surgery LEFT S/P sinus surgery [place] teeth removed Family History Father Diabetes Coronary heart disease Grandfather (Maternal) Family history of esophageal cancer Social History Smoking Status: Former smoker Smoking End Date: QUIT 30 YEARS AGO; Second Hand Exposure: No; Do You Dip or Chew Tobacco: No; Tobacco Cessation Education Requested by Patient: No Hx Alcohol Use: No Hx Substance Use: No Preferred Language: Turkmen Communication Ability: Effective Visual Impairment: No Limitations Hearing Ability: Normal Home Delivery Driver Required: No Beliefs That Will Affect Care: None marital status: Current Living Situation: Spouse current occupational status: employed Feels Safe at Home: Yes Safety Concerns: Feels Safe At This Time Childhood Exposure to Second-Hand Smoke: Yes Dental Care, Regularly: Yes Physical Activity Frequency: Does not Exercise Seatbelt Use: always Sunscreen Use: Yes Assistive Devices: Walker Review of Systems Review of Systems: All systems reviewed & are unremarkable except as noted in HPI & below Physical Exam Constitutional: well developed, well nourished and + obese; no acute distress Eyes: + anicteric sclerae; normal pupil size ENMT: external ear and nose normal, oropharynx normal Neck: trachea midline, no thyromegaly In brace Respiratory: normal respiratory effort, lungs clear to auscultation Cardiovascular: RRR, no murmur, no edema Gastrointestinal (Abdomen): normal bowel sounds, soft, nontender, no hepatosplenomegaly Skin: no rashes, warm and dry Neurologic: moves all extremities and awake; not confused Psychiatric: A+Ox3, euthymic affect Results & Data Results & Data ([facility]) Vital Signs (Past 12 Hours) Vital Signs Temp Pulse Pulse Resp BP Pulse Ox Pulse Ox 06/14/20 11:32 64 16 144/79 H 97 06/14/20 11:00 36.6 C 80 16 131/72 96 96 06/14/20 10:40 37.0 C 68 12 143/71 H 96 06/14/20 10:25 72 14 139/59 L 97 06/14/20 10:15 76 12 155/74 H 98 06/14/20 10:05 68 15 147/72 H 98 06/14/20 09:55 68 12 143/71 H 98 06/14/20 09:45 76 12 144/78 H 98 06/14/20 09:35 36.0 C L 70 14 139/82 97 06/14/20 07:07 36.9 C 75 20 161/88 H 96 PG Care Time/CCT Total # of Minutes Spent Total Time Spent with Patient: Total time spent is greater than 50% in coordination of care (as documented) at patient's floor/unit and/or counseling patient: Coding Level of Care Code 81230 Inpt Consult Level 3 Diagnoses Cervical stenosis of spinal canal M48.02 Esophageal reflux K21.9 Hyperlipidemia E78.5 Depression F32.9 Anxiety F41.9 Benign essential hypertension I10 DVT prophylaxis Z29.9
[2020-06-14] MEDS: OXYCODONE HCL IR 5 MG TAB (IMMEDIATE RELEASE) PO PRN ×2 (13:05→17:08)
--- NOTE | 2020-06-14 13:15 | Anesthesiology Progress Note ---
Date of Service June 14, 2020 Anesthesia Post Procedure Vital Signs Vital Signs: Temp Pulse Pulse Resp BP Pulse Ox Pulse Ox 06/14/20 13:00 36.5 C 71 16 150/78 H 95 06/14/20 12:00 36.5 C 70 16 145/78 H 95 06/14/20 11:59 77 16 96 06/14/20 11:32 64 16 144/79 H 97 06/14/20 11:00 36.6 C 80 16 131/72 96 96 06/14/20 10:40 37.0 C 68 12 143/71 H 96 06/14/20 10:25 72 14 139/59 L 97 06/14/20 10:15 76 12 155/74 H 98 06/14/20 10:05 68 15 147/72 H 98 06/14/20 09:55 68 12 143/71 H 98 06/14/20 09:45 76 12 144/78 H 98 06/14/20 09:35 36.0 C L 70 14 139/82 97 06/14/20 07:07 36.9 C 75 20 161/88 H 96 Pain Intensity Neck: Pain Intensity: 6 Anterior Neck: Pain Intensity: 7 Transfer of Care Handoff Completed per policy Notes Mental Status: alert / awake / arousable and participated in evaluation Patient Amnestic to Procedure: Yes Nausea / Vomiting: adequately controlled Pain: adequately controlled Airway Patency, RR, SpO2: stable & adequate BP & HR: stable & adequate Hydration State: stable & adequate Anesthetic Complications: no major complications apparent and Pt Satisfied with anesthetic care
[2020-06-14] MEDS: CEFAZOLIN 2000MG 2,000 MG/15 ML SYR IV SCH ×2 (15:52→23:24)
[2020-06-14] MEDS: PANTOprazole 40 MG TAB PO SCH (20:28)
[2020-06-14] MEDS: LITHIUM CARBONATE 300 MG TAB PO SCH (20:28)
[2020-06-14] MEDS ORDERED: CYCLOBENZAPRINE HCL 10 MG TAB PO SCH (21:00)
[2020-06-14] MEDS ORDERED: DOCUSATE SODIUM/SENNA 50/8.6MG TAB PO SCH (21:00)
[2020-06-15] MEDS ORDERED: POLYETHYLENE (MIRALAX) 17 GM PACK PO SCH (06:00)
[2020-06-15] MEDS: OXYCODONE HCL IR 5 MG TAB (IMMEDIATE RELEASE) PO PRN (07:32)
--- NOTE | 2020-06-15 08:18 | Discharge Summary ---
Date of Service June 15, 2020 Admission HPI Per Admitting Provider This is a 50-year-old female with an arm symptoms. After failing course of nonoperative care is here for surgical invention. Principal Diagnosis Cervical spinal stenosis with radiculopathy Discharge Data Allergies Allergy/AdvReac Type Severity Reaction Status Date / Time No Known Drug Allergies Allergy Verified 06/14/20 07:02 Consultations 06/14/20 11:21 Consult Hospitalist Routine Procedures Performed Operation Date: 06/14/20 07:45 Actual Procedures p C5-C6 Anterior Cervical Discectomy and Fusion, Spinal Cord Monitoring(Not Applicable) - Joseph Antunez DO Ordered Studies 06/14/20 07:45 FL cervical 2-3V Routine FL fluoroscopy <1hr Routine Hospital Course (1) Cervical stenosis of spinal canal: Patient went anterior cervical discectomy fusion tolerated well second orthopedic for possibly postop day #1 he swallowing well no hoarseness arm symptoms markedly productive strength testing LEONARD drain decreasing probably. Subsequent discharge home. Discharge orders instructions from the chart for further review. Total Time Total Time Spent Total Time Spent (In Minutes): 20 minutes Discharge Plan Discharge Items Patient Disposition: Home - Self-Care Reason For Visit: Spinal Stenosis, Cervical Region Discharge Diagnosis: Cervical spinal stenosis with radiculopathy Activity: As commented below Non-emergency contact: Primary Care Provider Call non-emergency contact if: you have any medication questions Follow-up/Referrals: Erlinda Beach MD [Primary Care Provider] - Diet: Regular Addtl Attending Provider Instructions: ACTIVITY RECOMMENDATIONS: SELF CARE INSTRUCTIONS AFTER CERVICAL FUSIONS 1. No smoking. Smoking drastically decreases the chance of a solid fusion. 2. No bending, lifting more than 5 pounds, or twisting (roll like a log when turning in bed). 3. You may shower 3 days after surgery. Thoroughly dry wound. Do not soak in the tub. 4. Cervical collar: Must be worn at all times including sleeping. You may remove the brace only to bath, eat and if you are sitting in a recliner. 5. Please walk as much as you can for exercise. Gradually increase the distance that you walk as your endurance increases. SPECIAL CARE INSTRUCTIONS: VERY IMPORTANT TO READ AND REVIEW A. Do not take any anti-inflammatory medications (i.e. Indocin, Advil, Aspirin, Naprosyn, Aleve, Motrin, etc.) as these may inhibit the chance of a solid fusion. Tylenol is okay to take. B. Your surgical incision has been closed with a cosmetic suture under the skin that will dissolve in about 6 weeks. In 14 days, you can use a pair of clean scissors and cut the suture that is left outside of the skin at the ends of your incision. C. Complications are uncommon, but please contact us if you have any signs or symptoms of: 1. wound infection (fever higher than 102.5 degrees F, redness, separation of wound, drainage, or increasing pain from the incision) 2. blood clots in legs (pain, swelling, redness and warmth in legs) 3. urinary tract infection (fever higher than 102.5 degrees, burning upon urination or increased frequency of urination) 4. nerve problems (inability to walk on your toes or heels, numbness, loss of bowel or bladder control) 5. any other symptoms that concern you. D. Please call the office at if you have any concerns or questions about your operation or recovery. MANAGING PAIN AFTER SPINAL SURGERY 1. Narcotic medication is intended for short-term use and will be provided for surgical pain. Surgical pain usually lasts for a period of 4-6 weeks. Narcotic medication includes Percocet, Vicodin, Darvocet, Tylenol #3 or Lortab. 2. Longer-term pain is more appropriately treated with non-narcotic medication such as Tylenol ES. 3. Muscle spasm is not appropriately treated with narcotics. Muscle relaxers such as Soma, Flexeril or Skelaxin can be used along with Tylenol ES. 4. Remember that we all live with some "aches and pains". This is not unusual or uncommon after an injury or as we get older. 5. We will provide appropriate medication within the normal guidelines of their prescribed use. We will also be very cautious and aware of potential abuse and extended duration of patients' medication needs. 6. Please allow 2-3 days to process refills. Prescriptions will not be mailed but must be picked up at the office. FOLLOW UP VISIT: Keep your scheduled follow-up appointment. Any questions, please call the office at . Pending Studies at Discharge: No Stand-Alone Forms: [facility], Smoking Cessation Medications and DC Order Prescriptions: New tramadol 50 mg tablet 50 mg PO Q6H PRN (Reason: pain, moderate) Qty: 15 RF: 0 oxycodone 5 mg tablet 5 mg PO Q6H PRN (Reason: pain, severe) Qty: 15 RF: 0 Continued lisinopril 5 mg tablet 5 mg PO DAILY Qty: 90 RF: 3 meclizine 25 mg tablet 25 mg PO TID PRN (Reason: dizziness) Qty: 60 RF: 1 rosuvastatin 40 mg tablet 40 mg PO DAILY Qty: 90 RF: 3 bupropion HCl 150 mg tablet sustained-release 12 hr 150 mg PO DAILY Qty: 90 RF: 3 fluticasone propionate 50 mcg/actuation spray,suspension 2 sprays intranasal DAILY Qty: 47.4 RF: 3 lithium carbonate 600 mg capsule 600 mg PO BID Qty: 180 RF: 3 omeprazole 20 mg tablet,delayed release (DR/EC) 20 mg PO BID Qty: 180 RF: 3 sertraline 100 mg tablet 100 mg PO DAILY Qty: 90 RF: 3 albuterol sulfate 90 mcg/actuation HFA aerosol inhaler 2 puffs inhalation Q4H PRN (Reason: shortness of breath or wheezing) Qty: 18 RF: 3 cyclobenzaprine 10 mg tablet 10 mg PO HS Qty: 30 RF: 0 Discharge Orders: Discharge Order (Routine); Ordered 06/15/20 Ordered By: Joseph Antunez Admission Data Admit Date/Time: 06/14/20 09:48 Attending Provider: Joseph Antunez Admit Provider: Joseph Antunez Primary Care Provider: Erlinda Beach Other Providers: Dimitri Penn
--- NOTE | 2020-06-15 08:19 | Anesthesiology Progress Note ---
Date of Service June 15, 2020 Anesthesia Post Procedure Vital Signs Vital Signs: Temp Pulse Pulse Resp BP BP Pulse Ox 06/15/20 07:04 52 L 18 95 06/15/20 05:20 36.5 C 71 18 135/73 97 06/15/20 03:30 36.7 C 61 13 150/72 H 96 06/15/20 03:02 62 14 97 06/15/20 01:09 36.6 C 70 13 130/72 96 06/14/20 23:27 36.6 C 70 12 169/79 H 96 06/14/20 23:12 65 14 96 06/14/20 20:56 36.5 C 68 16 143/68 H 97 06/14/20 19:52 71 16 97 06/14/20 18:57 36.5 C 72 16 137/71 97 06/14/20 17:02 36.8 C 73 16 131/74 95 06/14/20 15:17 62 16 98 06/14/20 15:02 36.5 C 71 16 148/75 H 96 06/14/20 14:00 36.4 C L 64 16 146/74 H 95 06/14/20 13:00 36.5 C 71 16 150/78 H 95 06/14/20 12:00 36.5 C 70 16 145/78 H 95 06/14/20 11:59 77 16 96 06/14/20 11:32 64 16 144/79 H 97 06/14/20 11:00 36.6 C 80 16 131/72 96 06/14/20 10:40 37.0 C 68 12 143/71 H 96 06/14/20 10:25 72 14 139/59 L 97 06/14/20 10:15 76 12 155/74 H 98 06/14/20 10:05 68 15 147/72 H 98 06/14/20 09:55 68 12 143/71 H 98 06/14/20 09:45 76 12 144/78 H 98 06/14/20 09:35 36.0 C L 70 14 139/82 97 Pulse Ox 06/15/20 07:04 06/15/20 05:20 06/15/20 03:30 06/15/20 03:02 06/15/20 01:09 06/14/20 23:27 06/14/20 23:12 06/14/20 20:56 06/14/20 19:52 06/14/20 18:57 06/14/20 17:02 06/14/20 15:17 06/14/20 15:02 06/14/20 14:00 06/14/20 13:00 06/14/20 12:00 06/14/20 11:59 06/14/20 11:32 06/14/20 11:00 96 06/14/20 10:40 06/14/20 10:25 06/14/20 10:15 06/14/20 10:05 06/14/20 09:55 06/14/20 09:45 06/14/20 09:35 Pain Intensity Neck: Pain Intensity: 6 Anterior Neck: Pain Intensity: 5 Notes Mental Status: alert / awake / arousable and participated in evaluation Patient Amnestic to Procedure: Yes Nausea / Vomiting: adequately controlled Pain: adequately controlled Airway Patency, RR, SpO2: stable & adequate BP & HR: stable & adequate Hydration State: stable & adequate Anesthetic Complications: no major complications apparent and Pt Satisfied with anesthetic care
[2020-06-15] MEDS: PANTOprazole 40 MG TAB PO SCH (08:35)
[2020-06-15] MEDS: LITHIUM CARBONATE 300 MG TAB PO SCH (08:35)
[2020-06-15] MEDS ORDERED: BuPROPion SR 150 MG TABCR PO SCH (09:00)
[2020-06-15] MEDS ORDERED: SERTRALINE HCL 100 MG TABLET PO SCH (09:00)
[2020-06-15] MEDS ORDERED: ROSUVASTATIN CALCIUM 20 MG TAB PO SCH (09:00)
[2020-06-15] MEDS ORDERED: lisinopriL 5 MG TAB PO SCH (09:00)
--- NOTE | 2020-06-15 12:20 | Communication Note ---
Date of Service: June 15, 2020 Patient was discharged by primary orthopedic team prior to my bedside assessment. Patient's vital signs were stable overnight. Dimitri Penn MD
[2020-06-16] MEDS ORDERED: bisacodyL 10 MG SUPP PR PRN (09:17)
== END 2020-06-15 10:04 | disposition home or self-care (01) ==
LOC: ASU 06:39 → INTOOBSV 09:48 → 3E 09:48